=== PATIENT | female | born 1995 | race American Indian/Alaskan Native ===

== ENCOUNTER 2016-09-25 20:10 | Outpatient (CLI) | payer MEDICAID ==
[2016-09-25] MEDS ORDERED: LACTATED RINGERS 1,000 ML IV ONE (20:40)
[2016-09-25 20:49] VITALS: BP 119/76
[2016-09-25 21:21] LABS: Bilirubin,Urine NEG (Negative); Blood,Urine MOD (Negative); Ketones,Urine 20 mg/dL (Negative); Leukocyte Esterase,Urine NEG (Negative); Mucus,Urine FEW /HPF; Nitrite,Urine NEG (Negative); Urobilinogen,Urine < 2.0 mg/dL (<2.0)
--- NOTE | 2016-09-26 10:44 | Ultrasound Report ---
BIOPHYSICAL PROFILE: 2 - breathing movements 2 - movements 2 - posture and tone 2 - Qualitative amniotic fluid volume 8 - TOTAL SCORE OF POSSIBLE 8 Heart Rate (bpm) 153
== END 2016-09-25 22:45 | disposition home or self-care (01) ==
LOC: TRG 20:10
PROVIDERS: ATTEND Obstetrics & Gynecology
DX: O47.03 False labor before 37 completed weeks of gestation, third trimester (principal); Z3A.33 33 weeks gestation of pregnancy
CPT/HCPCS: 59025; 76819; 81001; 96360; 96361; J7120

== ENCOUNTER 2018-09-11 14:02 | Inpatient (IN) | payer MEDICAID ==
[2018-09-11 16:02] LABS: Hematocrit 28.3 % (30.3-42.9); Hemoglobin 9.3 gm/dl (10.1-14.3); Mean Corpuscular HGB Conc 33 % (30-34); Mean Corpuscular Volume 78 fl (79-97); Platelet Count 212 K/mm3 (140-440); Red Blood Count 3.63 M/mm3 (3.65-5.03); Red Cell Distribution Width 18.1 % (13.2-15.2)
[2018-09-11] MEDS ORDERED: CERVIDIL VG ONE (16:52)
[2018-09-11] MEDS ORDERED: MINERAL OIL PO PRN (19:48)
[2018-09-11] MEDS ORDERED: BRETHINE SUB-Q PRN (19:48)
[2018-09-11] MEDS ORDERED: XYLOCAINE 2% INFILTRATI ONE (19:48)
[2018-09-11] MEDS ORDERED: BRETHINE IVP PRN (19:48)
[2018-09-11] MEDS ORDERED: SUBLIMAZE IV PRN (19:48)
[2018-09-11] MEDS ORDERED: PITOCin/NS 20 UNIT/1000ML DRIP 20 UNITS/1,000 ML BAG IV SCH (20:00)
--- NOTE | 2018-09-11 20:03 | History and Physical Report ---
History of Present Illness Date of examination: 09/11/18 Date of admission: 09/11/18 14:02 Chief complaint: Sent from the office for IOL History of present illness: 22yo G 3 P 2 0 0 1 at 39 weeks 0 day here from the office for induction of labor secondary to h/o IUFD at term. She reports +FMs but denies VB or LOF. She is a [employer] patient who initiated care at 9 weeks gestation. Her care was co-managed w/APA secondary to h/o term IUFD at 40 weeks in 2014 & morbid obesity. She has a history of anemia (on iron therapy) and +HSV I (reports h/o cold sores in the winter but no genital herpes). Labs: A pos, Antibody Screen neg, Pap Smear normal, RI, VDRL NR, HBsAg neg, HIV NR, HSV 1 pos / HSV 2 neg, Diabetes Screen 87, GC/CT/Trich neg, GBS neg. 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 (ASCUS on 01/29/16) Family/Genetic History: cancer (colon - mother, sister) - Obstetrical History Expected Date of Delivery: 09/18/18 Actual Gestation: 39 Week(s) 0 Day(s) : 3 Para: 2 Hx # Term Pregnancies: 2 Number of Pregnancies: 0 Spontaneous Abortions: 0 Induced : 0 Number of Living Children: 1 #1 Infant Gender: Male year: 2,015 (03/23/2017) Birthweight: 2.92 kg (6 lbs 7 oz) Method of Delivery: Vaginal Gestational age at delivery: 40 Complications: other (IUFD) #2 Infant Gender: Female year: 2,[birth year] (10/28/2018) Birthweight: 2.835 kg (6 lbs 4 oz) Method of Delivery: Vaginal Gestational age at delivery: 38 Complications: none Medications and Allergies Allergies Allergy/AdvReac Type Severity Reaction Status Date / Time No Known Allergies Allergy Verified 09/25/16 20:43 Home Medications Medication Instructions Recorded Confirmed Last Taken Type One Daily Tablet 09/11/18 09/11/18 08:00 History Active Meds: Active Medications Lactated Ringer's (Lactated Ringers) 1,000 mls @ 125 mls/hr IV DIRECT REBECCA Review of Systems All systems: negative - Vital Signs Vital signs: Vital Signs Pulse BP 122 H 124/68 09/11/18 14:31 09/11/18 14:31 Temp Pulse Resp BP Pulse Ox 98.5 F 104 H 20 102/69 09/11/18 14:59 09/11/18 15:50 09/11/18 14:59 09/11/18 15:50 - Physical Exam Genitourinary (Female): Positive: normal external genitalia, normal perenium Vulva: both: normal - Obstetrical FHR: auscultation normal, category 1 FHR comments: baseline 135, moderate variability, + accels, no decels Uterine Contraction Monitor Mode: External Cervical Dilatation: 0.5 Cervical Effacement Percentage: 60 station: -3 Uterine Contraction Pattern: Irregular Results Result Diagrams: 09/11/18 15:50 Abnormal lab results 09/11/18 Range/Units 15:50 RBC 3.63 L (3.65-5.03) M/mm3 Hgb 9.3 L (10.1-14.3) gm/dl Hct 28.3 L (30.3-42.9) % MCV 78 L (79-97) fl MCH 26 L (28-32) pg RDW 18.1 H (13.2-15.2) % All other labs normal. Assessment and Plan - Patient Problems (1) 39 weeks gestation of Current Visit: Yes Status: Acute (2) H/O intrauterine , currently Current Visit: Yes Status: Chronic (3) Encounter for induction of labor Current Visit: Yes Status: Acute Plan to address problem: Admit to L&D with routine labor orders Discussed plan of care with patient. All questions answered Cervidil for cervical ripening Anticipate vaginal delivery
[2018-09-12] MEDS: STADOL IV PRN ×2 (04:40→06:40)
[2018-09-12] MEDS: LACTATED RINGERS 1,000 ML IV SCH ×3 (08:38→11:41)
--- NOTE | 2018-09-12 10:39 | Anesthesia Consultation ---
Anesthesia Consult and Med Hx - Airway Anesthetic Teeth Evaluation: Good ROM Head & Neck: Adequate Mental/Hyoid Distance: Adequate Mallampati Class: Class II Intubation Access Assessment: Probably Good - Pulmonary Exam CTA: Yes - Cardiac Exam Cardiac Exam: RRR - Pre-Operative Health Status ASA Pre-Surgery Classification: ASA2 Proposed Anesthetic Plan: Epidural - Pulmonary Hx Asthma: Yes (childhood no meds) COPD: No Hx Pneumonia: No - Cardiovascular System Hx Hypertension: No - Central Nervous System Hx Seizures: No Hx Psychiatric Problems: No - Endocrine Hx Renal Disease: No Hx End Stage Renal Disease: No Hx Hypothyroidism: No Hx Hyperthyroidism: No - Hematic Hx Anemia: Yes (with meds) Hx Sickle Cell Disease: No - Other Systems Hx Alcohol Use: No Hx Obesity: Yes
--- NOTE | 2018-09-12 10:39 | Anesthesia Day of Surgery ---
Anesthesia Day of Surgery - Day of Surgery Patient Examined: Yes Patient H&P Reviewed: Yes Patient is NPO: Yes Beta Blockers: No Cardiac Clearance: No Pulmonary Clearance: No Aquiles's Test: N/A
[2018-09-12] MEDS ORDERED: MARCAINE 0.25% INFILTRATI ONE ×2 (10:43→15:07)
[2018-09-12] MEDS ORDERED: fentaNYL-BUPIV 2 MCG/ML-0.125% 200 MCG/100 ML BAG EPIDURAL SCH (11:00)
[2018-09-12] MEDS ORDERED: NARCAN 2 MG/2 ML IV PRN (11:00)
--- NOTE | 2018-09-12 11:20 | Progress Note ---
Assessment and Plan - Patient Problems (1) Encounter for induction of labor Current Visit: Yes Status: Acute Plan to address problem: Continue routine labor orders AROM - clear, blood tinged fluids Initiate Pitocin after 1 hour if ctx remain irregular Anticipate (2) H/O intrauterine , currently Current Visit: Yes Status: Chronic (3) Morbid obesity Current Visit: Yes Status: Acute (4) Anemia affecting Current Visit: Yes Status: Acute Qualifiers: Trimester: third trimester Qualified Code(s): O99.013 - Anemia complicating , third trimester Subjective - Subjective Date of service: 09/12/18 Principal diagnosis: IOL secondary to hx of term IUFD Interval history: See admission H & P Patient reports: new complaints ("I feel better now that I have an epidural"), movement normal, contractions, no loss of fluid Objective - Vital Signs Vital Signs: Vital Signs - 12hr 09/11/18 09/11/18 09/11/18 23:17 23:22 23:27 Temperature Pulse Rate 105 H 107 H 111 H Respiratory Rate Blood Pressure Blood Pressure [Left] O2 Sat by Pulse 98 98 97 Oximetry 09/11/18 09/11/18 09/11/18 23:32 23:37 23:38 Temperature Pulse Rate 109 H 101 H Respiratory Rate Blood Pressure Blood Pressure [Left] O2 Sat by Pulse 96 97 87 Oximetry 09/11/18 09/11/18 09/11/18 23:42 23:47 23:52 Temperature Pulse Rate 96 H 100 H 95 H Respiratory Rate Blood Pressure Blood Pressure [Left] O2 Sat by Pulse 96 97 96 Oximetry 09/11/18 09/11/18 09/12/18 23:57 23:59 00:00 Temperature 98.4 F Pulse Rate 104 H 98 H 100 H Respiratory 18 Rate Blood Pressure Blood Pressure 118/78 [Left] O2 Sat by Pulse 96 94 100 Oximetry 09/12/18 09/12/18 09/12/18 00:02 00:05 00:07 Temperature Pulse Rate 101 H 117 H 96 H Respiratory Rate Blood Pressure Blood Pressure [Left] O2 Sat by Pulse 96 92 96 Oximetry 09/12/18 09/12/18 09/12/18 00:12 00:17 00:22 Temperature Pulse Rate 99 H 95 H 93 H Respiratory Rate Blood Pressure Blood Pressure [Left] O2 Sat by Pulse 97 96 97 Oximetry 09/12/18 09/12/18 09/12/18 00:27 00:32 00:37 Temperature Pulse Rate 98 H 102 H 107 H Respiratory Rate Blood Pressure Blood Pressure [Left] O2 Sat by Pulse 96 98 98 Oximetry 09/12/18 09/12/18 09/12/18 00:42 00:45 00:47 Temperature Pulse Rate 98 H 111 H 100 H Respiratory Rate Blood Pressure Blood Pressure [Left] O2 Sat by Pulse 97 84 97 Oximetry 09/12/18 09/12/18 09/12/18 01:10 01:15 01:18 Temperature Pulse Rate 106 H 100 H 86 Respiratory Rate Blood Pressure Blood Pressure [Left] O2 Sat by Pulse 98 98 94 Oximetry 09/12/18 09/12/18 09/12/18 01:20 01:25 01:30 Temperature Pulse Rate 99 H 92 H 91 H Respiratory Rate Blood Pressure Blood Pressure [Left] O2 Sat by Pulse 96 98 98 Oximetry 09/12/18 09/12/18 09/12/18 01:35 01:40 01:45 Temperature Pulse Rate 85 95 H 101 H Respiratory Rate Blood Pressure Blood Pressure [Left] O2 Sat by Pulse 98 98 97 Oximetry 09/12/18 09/12/18 09/12/18 04:32 04:40 04:41 Temperature 97.6 F Pulse Rate 98 H Respiratory 18 18 Rate Blood Pressure 137/87 Blood Pressure [Left] O2 Sat by Pulse Oximetry 09/12/18 09/12/18 09/12/18 05:34 06:36 06:41 Temperature Pulse Rate 89 91 H Respiratory 18 Rate Blood Pressure Blood Pressure [Left] O2 Sat by Pulse 96 95 Oximetry 09/12/18 09/12/18 09/12/18 06:44 06:46 06:51 Temperature Pulse Rate 87 84 88 Respiratory Rate Blood Pressure Blood Pressure [Left] O2 Sat by Pulse 94 93 92 Oximetry 09/12/18 09/12/18 09/12/18 06:56 07:00 07:01 Temperature 98.0 F Pulse Rate 89 91 H Respiratory 16 Rate Blood Pressure Blood Pressure [Left] O2 Sat by Pulse 94 94 Oximetry 09/12/18 09/12/18 09/12/18 07:03 07:06 07:11 Temperature Pulse Rate 90 114 H 97 H Respiratory Rate Blood Pressure Blood Pressure [Left] O2 Sat by Pulse 94 94 95 Oximetry 05/14/19 05/14/19 05/14/19 07:16 07:19 07:21 Temperature Pulse Rate 88 90 111 H Respiratory Rate Blood Pressure Blood Pressure [Left] O2 Sat by Pulse 95 94 93 Oximetry 09/12/18 09/12/18 09/12/18 07:26 07:31 07:36 Temperature Pulse Rate 90 107 H 80 Respiratory Rate Blood Pressure Blood Pressure [Left] O2 Sat by Pulse 95 95 96 Oximetry 09/12/18 09/12/18 09/12/18 07:40 07:41 07:45 Temperature Pulse Rate 104 H 82 95 H Respiratory Rate Blood Pressure Blood Pressure [Left] O2 Sat by Pulse 94 95 93 Oximetry 09/12/18 09/12/18 09/12/18 07:46 07:51 07:56 Temperature Pulse Rate 93 H 119 H 90 Respiratory Rate Blood Pressure Blood Pressure [Left] O2 Sat by Pulse 96 95 96 Oximetry 09/12/18 09/12/18 09/12/18 08:01 08:06 08:11 Temperature Pulse Rate 121 H 96 H 101 H Respiratory Rate Blood Pressure Blood Pressure [Left] O2 Sat by Pulse 97 96 97 Oximetry 09/12/18 09/12/18 09/12/18 08:16 08:21 08:26 Temperature Pulse Rate 103 H 104 H 98 H Respiratory Rate Blood Pressure Blood Pressure [Left] O2 Sat by Pulse 97 95 96 Oximetry 09/12/18 09/12/18 09/12/18 08:28 08:31 08:36 Temperature Pulse Rate 103 H 105 H 91 H Respiratory Rate Blood Pressure Blood Pressure [Left] O2 Sat by Pulse 94 96 96 Oximetry 09/12/18 09/12/18 09/12/18 08:41 08:46 08:47 Temperature Pulse Rate 115 H 83 86 Respiratory Rate Blood Pressure Blood Pressure [Left] O2 Sat by Pulse 95 94 94 Oximetry 09/12/18 09/12/18 09/12/18 08:51 08:53 08:56 Temperature Pulse Rate 103 H 84 88 Respiratory Rate Blood Pressure Blood Pressure [Left] O2 Sat by Pulse 95 94 95 Oximetry 09/12/18 09/12/18 09/12/18 09:01 09:06 09:11 Temperature Pulse Rate 86 91 H 114 H Respiratory Rate Blood Pressure Blood Pressure [Left] O2 Sat by Pulse 95 95 95 Oximetry 09/12/18 09/12/18 09/12/18 09:16 09:21 09:26 Temperature Pulse Rate 102 H 94 H 92 H Respiratory Rate Blood Pressure Blood Pressure [Left] O2 Sat by Pulse 96 96 95 Oximetry 09/12/18 09/12/18 09/12/18 09:31 09:33 09:36 Temperature Pulse Rate 99 H 96 H 96 H Respiratory Rate Blood Pressure Blood Pressure [Left] O2 Sat by Pulse 95 94 95 Oximetry 09/12/18 09/12/18 09/12/18 09:40 09:41 09:46 Temperature Pulse Rate 86 86 101 H Respiratory Rate Blood Pressure Blood Pressure [Left] O2 Sat by Pulse 94 97 95 Oximetry 09/12/18 09/12/18 09/12/18 09:51 09:55 09:56 Temperature Pulse Rate 84 95 H 86 Respiratory Rate Blood Pressure Blood Pressure [Left] O2 Sat by Pulse 95 94 95 Oximetry 09/12/18 09/12/18 09/12/18 10:01 10:04 10:06 Temperature Pulse Rate 82 91 H 93 H Respiratory Rate Blood Pressure Blood Pressure [Left] O2 Sat by Pulse 96 94 97 Oximetry 09/12/18 09/12/18 09/12/18 10:11 10:16 10:21 Temperature Pulse Rate 105 H 103 H 107 H Respiratory Rate Blood Pressure Blood Pressure [Left] O2 Sat by Pulse 96 96 96 Oximetry 09/12/18 09/12/18 09/12/18 10:40 10:45 10:50 Temperature Pulse Rate 96 H 101 H 105 H Respiratory Rate Blood Pressure Blood Pressure [Left] O2 Sat by Pulse 98 98 97 Oximetry 09/12/18 09/12/18 09/12/18 10:54 10:55 10:58 Temperature Pulse Rate 111 H 114 H 101 H Respiratory Rate Blood Pressure 122/73 Blood Pressure [Left] O2 Sat by Pulse 94 97 Oximetry 09/12/18 09/12/18 09/12/18 11:00 11:04 11:05 Temperature Pulse Rate 119 H 114 H 113 H Respiratory Rate Blood Pressure 117/61 Blood Pressure [Left] O2 Sat by Pulse 99 96 Oximetry 09/12/18 09/12/18 09/12/18 11:06 11:09 11:10 Temperature Pulse Rate 115 H 120 H 114 H Respiratory Rate Blood Pressure 107/61 119/64 Blood Pressure [Left] O2 Sat by Pulse 100 Oximetry 09/12/18 11:12 Temperature Pulse Rate 103 H Respiratory Rate Blood Pressure 124/63 Blood Pressure [Left] O2 Sat by Pulse Oximetry - Exam Breasts: deferred Cardiovascular: Regular rate Lungs: Normal air movement Abdomen: Present: other (gravid) Uterus: Present: other (S=D) FHR: category 1 Uterine Contraction Monitor Mode: External Cervical Dilatation: 4.5 Cervical Effacement Percentage: 80 station: -1 Uterine Contraction Frequency (min): 5-7 Uterine Contraction Pattern: Irregular Uterine Tone Measurement Phase: Resting Uterine Contraction Intensity: Moderate Extremities: normal Deep Tendon Reflex Grade: Normal +2 - Labs Labs: Abnormal Labs 09/11/18 15:50 RBC 3.63 L Hgb 9.3 L Hct 28.3 L MCV 78 L MCH 26 L RDW 18.1 H Laboratory Results - last 24 hr 09/11/18 09/11/18 09/11/18 15:50 15:50 15:50 WBC 8.5 RBC 3.63 L Hgb 9.3 L Hct 28.3 L MCV 78 L MCH 26 L MCHC 33 RDW 18.1 H Plt Count 212 RPR Nonreactive Blood Type A POSITIVE Antibody Screen Negative
[2018-09-12] MEDS ORDERED: ZOFRAN IV PRN ×2 (12:00→18:07)
[2018-09-12] MEDS ORDERED: PITOCin/NS 30 UNIT/500ML 30 UNITS/500 ML BAG IV SCH (12:30)
--- NOTE | 2018-09-12 15:55 | Progress Note ---
Assessment and Plan - Patient Problems (1) Encounter for induction of labor Current Visit: Yes Status: Acute Plan to address problem: Continue routine labor orders Continue Pitocin titration as tolerated Anticipate (2) H/O intrauterine , currently Current Visit: Yes Status: Chronic (3) Morbid obesity Current Visit: Yes Status: Acute (4) Anemia affecting Current Visit: Yes Status: Acute Qualifiers: Trimester: third trimester Qualified Code(s): O99.013 - Anemia complicating , third trimester Subjective - Subjective Date of service: 09/12/18 (1500) Principal diagnosis: IOL secondary to hx of term IUFD Interval history: See admission H & P Patient reports: movement normal, contractions, other (Resting comfortably with epidural. Significant other at bedside) Objective - Vital Signs Vital Signs: Vital Signs - 12hr 09/12/18 09/12/18 09/12/18 04:32 04:40 04:41 Temperature 97.6 F Pulse Rate 98 H Respiratory 18 18 Rate Blood Pressure 137/87 O2 Sat by Pulse Oximetry 09/12/18 09/12/18 09/12/18 05:34 06:36 06:41 Temperature Pulse Rate 89 91 H Respiratory 18 Rate Blood Pressure O2 Sat by Pulse 96 95 Oximetry 09/12/18 09/12/18 09/12/18 06:44 06:46 06:51 Temperature Pulse Rate 87 84 88 Respiratory Rate Blood Pressure O2 Sat by Pulse 94 93 92 Oximetry 09/12/18 09/12/18 09/12/18 06:56 07:00 07:01 Temperature 98.0 F Pulse Rate 89 91 H Respiratory 16 Rate Blood Pressure O2 Sat by Pulse 94 94 Oximetry 09/12/18 09/12/18 09/12/18 07:03 07:06 07:11 Temperature Pulse Rate 90 114 H 97 H Respiratory Rate Blood Pressure O2 Sat by Pulse 94 94 95 Oximetry 09/12/18 09/12/18 09/12/18 07:16 07:19 07:21 Temperature Pulse Rate 88 90 111 H Respiratory Rate Blood Pressure O2 Sat by Pulse 95 94 93 Oximetry 09/12/18 09/12/18 09/12/18 07:26 07:31 07:36 Temperature Pulse Rate 90 107 H 80 Respiratory Rate Blood Pressure O2 Sat by Pulse 95 95 96 Oximetry 09/12/18 09/12/18 09/12/18 07:40 07:41 07:45 Temperature Pulse Rate 104 H 82 95 H Respiratory Rate Blood Pressure O2 Sat by Pulse 94 95 93 Oximetry 09/12/18 09/12/18 09/12/18 07:46 07:51 07:56 Temperature Pulse Rate 93 H 119 H 90 Respiratory Rate Blood Pressure O2 Sat by Pulse 96 95 96 Oximetry 09/12/18 09/12/18 09/12/18 08:01 08:06 08:11 Temperature Pulse Rate 121 H 96 H 101 H Respiratory Rate Blood Pressure O2 Sat by Pulse 97 96 97 Oximetry 09/12/18 09/12/18 09/12/18 08:16 08:21 08:26 Temperature Pulse Rate 103 H 104 H 98 H Respiratory Rate Blood Pressure O2 Sat by Pulse 97 95 96 Oximetry 09/12/18 09/12/18 09/12/18 08:28 08:31 08:36 Temperature Pulse Rate 103 H 105 H 91 H Respiratory Rate Blood Pressure O2 Sat by Pulse 94 96 96 Oximetry 09/12/18 09/12/18 09/12/18 08:41 08:46 08:47 Temperature Pulse Rate 115 H 83 86 Respiratory Rate Blood Pressure O2 Sat by Pulse 95 94 94 Oximetry 09/12/18 09/12/18 09/12/18 08:51 08:53 08:56 Temperature Pulse Rate 103 H 84 88 Respiratory Rate Blood Pressure O2 Sat by Pulse 95 94 95 Oximetry 09/12/18 09/12/18 09/12/18 09:01 09:06 09:11 Temperature Pulse Rate 86 91 H 114 H Respiratory Rate Blood Pressure O2 Sat by Pulse 95 95 95 Oximetry 09/12/18 09/12/18 09/12/18 09:16 09:21 09:26 Temperature Pulse Rate 102 H 94 H 92 H Respiratory Rate Blood Pressure O2 Sat by Pulse 96 96 95 Oximetry 09/12/18 09/12/18 09/12/18 09:31 09:33 09:36 Temperature Pulse Rate 99 H 96 H 96 H Respiratory Rate Blood Pressure O2 Sat by Pulse 95 94 95 Oximetry 09/12/18 09/12/18 09/12/18 09:40 09:41 09:46 Temperature Pulse Rate 86 86 101 H Respiratory Rate Blood Pressure O2 Sat by Pulse 94 97 95 Oximetry 09/12/18 09/12/18 09/12/18 09:51 09:55 09:56 Temperature Pulse Rate 84 95 H 86 Respiratory Rate Blood Pressure O2 Sat by Pulse 95 94 95 Oximetry 09/12/18 09/12/18 09/12/18 10:01 10:04 10:06 Temperature Pulse Rate 82 91 H 93 H Respiratory Rate Blood Pressure O2 Sat by Pulse 96 94 97 Oximetry 09/12/18 09/12/18 09/12/18 10:11 10:16 10:21 Temperature Pulse Rate 105 H 103 H 107 H Respiratory Rate Blood Pressure O2 Sat by Pulse 96 96 96 Oximetry 09/12/18 09/12/18 09/12/18 10:40 10:45 10:50 Temperature Pulse Rate 96 H 101 H 105 H Respiratory Rate Blood Pressure O2 Sat by Pulse 98 98 97 Oximetry 09/12/18 09/12/18 09/12/18 10:54 10:55 10:58 Temperature Pulse Rate 111 H 114 H 101 H Respiratory Rate Blood Pressure 122/73 O2 Sat by Pulse 94 97 Oximetry 09/12/18 09/12/18 09/12/18 11:00 11:04 11:05 Temperature Pulse Rate 119 H 114 H 113 H Respiratory Rate Blood Pressure 117/61 O2 Sat by Pulse 99 96 Oximetry 09/12/18 09/12/18 09/12/18 11:06 11:09 11:10 Temperature Pulse Rate 115 H 120 H 114 H Respiratory Rate Blood Pressure 107/61 119/64 O2 Sat by Pulse 100 Oximetry 09/12/18 09/12/18 09/12/18 11:12 11:15 11:18 Temperature Pulse Rate 103 H 93 H 116 H Respiratory Rate Blood Pressure 124/63 116/59 109/59 O2 Sat by Pulse 97 Oximetry 09/12/18 09/12/18 09/12/18 11:20 11:21 11:24 Temperature Pulse Rate 109 H 108 H 86 Respiratory Rate Blood Pressure 103/57 110/61 O2 Sat by Pulse 98 Oximetry 09/12/18 09/12/18 09/12/18 11:25 11:27 11:30 Temperature Pulse Rate 99 H 112 H 94 H Respiratory Rate Blood Pressure 108/65 115/67 O2 Sat by Pulse 97 97 Oximetry 09/12/18 09/12/18 09/12/18 11:33 11:35 11:36 Temperature Pulse Rate 118 H 132 H 100 H Respiratory Rate Blood Pressure 114/67 119/81 O2 Sat by Pulse 99 Oximetry 09/12/18 09/12/18 09/12/18 11:39 11:40 11:42 Temperature Pulse Rate 100 H 106 H 105 H Respiratory Rate Blood Pressure 119/70 111/63 O2 Sat by Pulse 98 Oximetry 09/12/18 09/12/18 09/12/18 11:45 11:48 11:50 Temperature Pulse Rate 90 101 H 92 H Respiratory Rate Blood Pressure 120/72 112/72 O2 Sat by Pulse 98 98 Oximetry 09/12/18 09/12/18 09/12/18 11:51 11:54 11:55 Temperature Pulse Rate 100 H 107 H 91 H Respiratory Rate Blood Pressure 105/67 102/58 O2 Sat by Pulse 98 Oximetry 09/12/18 09/12/18 09/12/18 11:57 12:00 12:03 Temperature Pulse Rate 81 86 105 H Respiratory Rate Blood Pressure 109/65 111/62 104/57 O2 Sat by Pulse 98 Oximetry 09/12/18 09/12/18 09/12/18 12:05 12:06 12:09 Temperature 97.9 F Pulse Rate 83 76 100 H Respiratory Rate Blood Pressure 115/64 108/61 O2 Sat by Pulse 97 Oximetry 09/12/18 09/12/18 09/12/18 12:10 12:15 12:20 Temperature Pulse Rate 107 H 79 120 H Respiratory Rate Blood Pressure O2 Sat by Pulse 99 97 97 Oximetry 09/12/18 09/12/18 09/12/18 12:25 12:26 12:30 Temperature Pulse Rate 90 92 H 84 Respiratory Rate Blood Pressure 105/66 O2 Sat by Pulse 96 97 Oximetry 09/12/18 09/12/18 09/12/18 12:35 12:40 12:42 Temperature Pulse Rate 110 H 79 86 Respiratory Rate Blood Pressure 105/68 O2 Sat by Pulse 97 96 Oximetry 09/12/18 09/12/18 09/12/18 12:45 12:50 12:55 Temperature Pulse Rate 90 79 90 Respiratory Rate Blood Pressure O2 Sat by Pulse 97 97 98 Oximetry 09/12/18 09/12/18 09/12/18 12:57 13:00 13:05 Temperature Pulse Rate 100 H 112 H 89 Respiratory Rate Blood Pressure 121/79 O2 Sat by Pulse 97 96 Oximetry 05/09/12/18 09/12/18 13:10 13:11 13:15 Temperature Pulse Rate 80 95 H 104 H Respiratory Rate Blood Pressure 109/61 O2 Sat by Pulse 97 96 Oximetry 09/12/18 09/12/18 09/12/18 13:20 13:25 13:26 Temperature Pulse Rate 84 93 H 129 H Respiratory Rate Blood Pressure 111/71 O2 Sat by Pulse 98 97 Oximetry 09/12/18 09/12/18 09/12/18 13:30 13:35 13:40 Temperature Pulse Rate 99 H 99 H 90 Respiratory Rate Blood Pressure O2 Sat by Pulse 98 98 98 Oximetry 09/12/18 09/12/18 09/12/18 13:45 13:50 13:55 Temperature Pulse Rate 85 88 88 Respiratory Rate Blood Pressure O2 Sat by Pulse 97 96 97 Oximetry 09/12/18 09/12/18 09/12/18 14:00 14:05 14:10 Temperature Pulse Rate 88 80 89 Respiratory Rate Blood Pressure 109/72 O2 Sat by Pulse 97 98 98 Oximetry 09/12/18 09/12/18 09/12/18 14:15 14:20 14:25 Temperature Pulse Rate 96 H 90 91 H Respiratory Rate Blood Pressure O2 Sat by Pulse 99 97 99 Oximetry 09/12/18 09/12/18 09/12/18 14:30 14:35 14:40 Temperature Pulse Rate 83 88 113 H Respiratory Rate Blood Pressure 117/72 O2 Sat by Pulse 98 97 99 Oximetry 09/12/18 09/12/18 09/12/18 14:45 14:50 14:55 Temperature Pulse Rate 99 H 93 H 101 H Respiratory Rate Blood Pressure O2 Sat by Pulse 97 96 97 Oximetry 09/12/18 09/12/18 09/12/18 15:00 15:05 15:11 Temperature Pulse Rate 95 H 98 H 106 H Respiratory Rate Blood Pressure O2 Sat by Pulse 98 98 97 Oximetry 09/12/18 09/12/18 09/12/18 15:12 15:16 15:21 Temperature Pulse Rate 101 H 107 H 90 Respiratory Rate Blood Pressure 130/78 O2 Sat by Pulse 97 96 Oximetry 09/12/18 09/12/18 09/12/18 15:26 15:31 15:36 Temperature Pulse Rate 91 H 102 H 95 H Respiratory Rate Blood Pressure O2 Sat by Pulse 95 96 96 Oximetry 09/12/18 09/12/18 15:41 15:46 Temperature Pulse Rate 99 H 100 H Respiratory Rate Blood Pressure 103/63 O2 Sat by Pulse 96 98 Oximetry - Exam Breasts: deferred Cardiovascular: Regular rate Lungs: Normal air movement Abdomen: Present: other (gravid) FHR: category 1 Uterine Contraction Monitor Mode: External Cervical Dilatation: 6 (per RN) Cervical Effacement Percentage: 80 station: -1 Uterine Contraction Frequency (min): 3-4 Uterine Contraction Pattern: Regular Uterine Tone Measurement Phase: Resting Uterine Contraction Intensity: Moderate Extremities: normal Deep Tendon Reflex Grade: Normal +2 - Labs Labs: Abnormal Labs 09/11/18 15:50 RBC 3.63 L Hgb 9.3 L Hct 28.3 L MCV 78 L MCH 26 L RDW 18.1 H Laboratory Results - last 24 hr 09/11/18 09/11/18 09/11/18 15:50 15:50 15:50 WBC 8.5 RBC 3.63 L Hgb 9.3 L Hct 28.3 L MCV 78 L MCH 26 L MCHC 33 RDW 18.1 H Plt Count 212 RPR Nonreactive Blood Type A POSITIVE Antibody Screen Negative
--- NOTE | 2018-09-12 18:06 | Procedure Note ---
OB Delivery Note - Delivery Estimated blood loss: 100cc - Vaginal Delivery presentation: vertex Delivery position: OA Delivery induction: cervidil Delivery monitor: external FHT Route of delivery: Delivery placenta: spontaneous Episiotomy: none Delivery laceration: none Anesthesia: epidural Delivery comments: Called to room for delivery of a term male infant, delivered vertex, no lacerations. Infant delivered with spontaneous cry, bulb suctioned and placed on maternal abdomen. - A at 1 minute: 8 at 5 minutes: 9 Infant Gender: Male (Weight 6lb 4oz)
[2018-09-12] MEDS ORDERED: DULCOLAX PR PRN (18:07)
[2018-09-12] MEDS ORDERED: LANSINOH TP PRN (18:07)
[2018-09-12] MEDS ORDERED: PHENERGAN PO PRN (18:07)
[2018-09-12] MEDS ORDERED: TUCKS PAD TP PRN (18:07)
[2018-09-12] MEDS ORDERED: BENADRYL PO PRN (18:07)
[2018-09-12] MEDS ORDERED: MILK OF MAGNESIA PO PRN (18:07)
[2018-09-12] MEDS ORDERED: SODIUM CHLORIDE FLUSH SYRINGE 10 ML IV SCH (19:00)
[2018-09-12] MEDS: IBUPROFEN PO SCH (20:22)
[2018-09-12] MEDS: TYLENOL PO PRN (20:22)
[2018-09-13] MEDS: IBUPROFEN PO SCH ×4 (00:30→17:54)
[2018-09-13] MEDS: TYLENOL PO PRN ×2 (04:16→13:25)
[2018-09-13 06:14] LABS: Hematocrit 26.4 % (30.3-42.9); Hemoglobin 8.4 gm/dl (10.1-14.3)
[2018-09-13] MEDS: PRENATAL VITAMIN PO SCH (09:52)
[2018-09-13] MEDS: FEOSOL PO SCH (09:52)
--- NOTE | 2018-09-13 10:02 | Progress Note ---
Assessment and Plan - Patient Problems (1) Encounter for induction of labor Current Visit: Yes Status: Acute Plan to address problem: Continue routine PP orders Anticipate d/c home in 24-48 hrs (2) H/O intrauterine , currently Current Visit: Yes Status: Chronic (3) Morbid obesity Current Visit: Yes Status: Acute (4) Anemia affecting Current Visit: Yes Status: Acute Qualifiers: Trimester: third trimester Qualified Code(s): O99.013 - Anemia complicating , third trimester Plan to address problem: Currently asymptomatic Continue daily iron supplementation twice daily Subjective - Subjective Date of service: 09/13/18 Principal diagnosis: IOL secondary to hx of term IUFD Interval history: See admission H & P; OB progress notes; and OB delivery summary Patient reports: appetite normal, voiding normally, pain well controlled, flatus, ambulating normally, no bowel movement [place]: doing well () Objective - Vital Signs Latest vital signs: Vital Signs Temp Pulse Resp BP BP Pulse Ox 09/13/18 08:15 98 F 97 H 20 106/62 09/13/18 04:00 98.6 F 78 18 117/81 09/13/18 00:11 98.7 F 18 102/54 09/12/18 20:00 99.3 F 109 H 16 123/79 09/12/18 18:36 109 H 125/60 09/12/18 18:21 107 H 112/58 09/12/18 18:06 105 H 132/62 09/12/18 17:40 127 H 147/79 09/12/18 16:40 106 H 128/81 09/12/18 16:12 120 H 112/62 09/12/18 16:00 98.0 F 18 09/12/18 15:56 106 H 98 09/12/18 15:51 100 H 98 09/12/18 15:46 100 H 98 09/12/18 15:41 99 H 103/63 96 09/12/18 15:36 95 H 96 09/12/18 15:31 102 H 96 09/12/18 15:26 91 H 95 09/12/18 15:21 90 96 09/12/18 15:16 107 H 97 09/12/18 15:12 101 H 130/78 09/12/18 15:11 106 H 97 09/12/18 15:05 98 H 98 09/12/18 15:00 95 H 98 09/12/18 14:55 101 H 97 09/12/18 14:50 93 H 96 09/12/18 14:45 99 H 97 09/12/18 14:40 113 H 117/72 99 09/12/18 14:35 88 97 09/12/18 14:30 83 98 05 14:25 91 H 99 09/12/18 14:20 90 97 09/12/18 14:15 96 H 99 09/12/18 14:10 89 109/72 98 09/12/18 14:05 80 98 09/12/18 14:00 98.0 F 88 16 97 09/12/18 13:55 88 97 09/12/18 13:50 88 96 09/12/18 13:45 85 97 09/12/18 13:40 90 98 09/12/18 13:35 99 H 98 09/12/18 13:30 99 H 98 09/12/18 13:26 129 H 111/71 09/12/18 13:25 93 H 97 09/12/18 13:20 84 98 09/12/18 13:15 104 H 96 09/12/18 13:11 95 H 109/61 09/12/18 13:10 80 97 09/12/18 13:05 89 96 09/12/18 13:00 112 H 97 09/12/18 12:57 100 H 121/79 09/12/18 12:55 90 98 09/12/18 12:50 79 97 09/12/18 12:45 90 97 09/12/18 12:42 86 105/68 09/12/18 12:40 79 96 09/12/18 12:35 110 H 97 09/12/18 12:30 84 97 09/12/18 12:26 92 H 105/66 09/12/18 12:25 90 96 09/12/18 12:20 120 H 97 09/12/18 12:15 79 97 09/12/18 12:10 107 H 99 09/12/18 12:09 100 H 108/61 09/12/18 12:06 97.9 F 76 115/64 14 12:05 83 97 09/12/18 12:03 105 H 104/57 09/12/18 12:00 86 111/62 98 09/12/18 11:57 81 109/65 09/12/18 11:55 91 H 98 09/12/18 11:54 107 H 102/58 09/12/18 11:51 100 H 105/67 09/12/18 11:50 92 H 98 09/12/18 11:48 101 H 112/72 09/12/18 11:45 90 120/72 98 09/12/18 11:42 105 H 111/63 09/12/18 11:40 106 H 98 09/12/18 11:39 100 H 119/70 09/12/18 11:36 100 H 119/81 09/12/18 11:35 132 H 99 09/12/18 11:33 118 H 114/67 09/12/18 11:30 94 H 115/67 97 09/12/18 11:27 112 H 108/65 09/12/18 11:25 99 H 97 09/12/18 11:24 86 110/61 09/12/18 11:21 108 H 103/57 09/12/18 11:20 109 H 98 09/12/18 11:18 116 H 109/59 09/12/18 11:15 93 H 116/59 97 09/12/18 11:12 103 H 124/63 09/12/18 11:10 114 H 100 09/12/18 11:09 120 H 119/64 09/12/18 11:06 115 H 107/61 09/12/18 11:05 113 H 96 09/12/18 11:04 114 H 117/61 09/12/18 11:00 119 H 99 09/12/18 10:58 101 H 122/73 09/12/18 10:55 114 H 97 09/12/18 10:54 111 H 94 09/12/18 10:50 105 H 97 09/12/18 10:45 101 H 98 09/12/18 10:40 96 H 98 09/12/18 10:21 107 H 96 09/12/18 10:16 103 H 96 09/12/18 10:11 105 H 96 09/12/18 10:06 93 H 97 09/12/18 10:04 91 H 94 09/12/18 10:01 82 96 Intake and Output 09/12/18 09/13/18 09/13/18 23:59 07:59 15:59 Intake Total 10.467 320 Output Total 1200 1400 400 Balance -1189.533 -1400 -80 Intake: IV 10.467 PITOCin/NS 30 UNIT/500ML 10.467 30 units In 500 ml @ 2 mls/hr IV TITR REBECCA Rx#: [id number] Oral 320 Output: Urine 1200 1400 400 Indwelling Catheter 1200 Void 1400 400 Other: Total, Intake Amount 320 Total, Output Amount 400 600 400 # Voids Void 1 Estimated Blood Loss 100 - Exam Breasts: Present: normal Cardiovascular: Present: Regular rate Lungs: Present: Normal air movement Abdomen: Present: soft, normal bowel sounds Uterus: Present: firm, fundal height at umbilicus Extremities: Present: normal Deep Tendon Reflex Grade: Normal +2 - Labs Labs: Abnormal lab results 09/13/18 Range/Units 06:00 Hgb 8.4 L (10.1-14.3) gm/dl Hct 26.4 L (30.3-42.9) %
--- NOTE | 2018-09-13 10:09 | Discharge Summary ---
Providers - Providers Date of Admission: 09/11/18 14:02 Date of discharge: 09/14/18 (1200) Attending physician: TESS SHELBY MD Primary care physician: TESS SHELBY MD Hospitalization Reason for admission: induction of labor (secondary to hx of term IUFD), IUP at term Delivery: Episiotomy: none Laceration: none Other procedures: none complications: none Discharge diagnosis: IUP at term delivered, other (Anemia) baby: male Hospital course: See admission H & P; OB delivery summary and PP progress notes Condition at discharge: Good Disposition: DC-01 TO HOME OR SELFCARE - Discharge Diagnoses (1) Encounter for induction of labor Status: Acute (2) H/O intrauterine , currently Status: Chronic (3) Morbid obesity Status: Acute (4) Anemia affecting Status: Acute Qualifiers: Trimester: third trimester Qualified Code(s): O99.013 - Anemia complicating , third trimester Plan - Provider Discharge Summary Activity: routine, no sex for 6 weeks, no heavy lifting 4 weeks, no strenuous exercise Diet: routine Instructions: routine Additional instructions: [] Smoking cessation referral if applicable(refer to patient education folder for contact #) [] Refer to [facility] Booklet Call your doctor immediately for: * Fever > 100.5 * Heavy vaginal bleeding ( >1 pad per hour) * Severe persistent headache * Shortness of breath * Reddened, hot, painful area to leg or breast * Drainage or odor from incision. * Continue daily iron supplementation twice daily - Follow up plan Follow up: TESS SHELBY MD [Primary Care Provider] - 6 Weeks
[2018-09-14] MEDS: IBUPROFEN PO SCH ×2 (01:35→05:36)
[2018-09-14] MEDS: FEOSOL PO SCH ×2 (01:36→09:22)
[2018-09-14] MEDS ORDERED: BOOSTRIX IM ONE (09:00)
[2018-09-14] MEDS: PRENATAL VITAMIN PO SCH (09:22)
[2018-09-14 13:52] VITALS: BP 128/80
== END 2018-09-14 13:45 | disposition home or self-care (01) | DRG 775 ==
LOC: LD 14:02 → OB 09-12 20:07
PROVIDERS: ADMIT Obstetrics & Gynecology; ATTEND Obstetrics & Gynecology
PROC: 10E0XZZ Delivery of Products of Conception, External Approach (ICD-10-PCS; principal; 2018-09-12)
PROC: 10907ZC Drainage of Amniotic Fluid, Therapeutic from Products of Conception, Via Natural or Artificial Opening (ICD-10-PCS; 2018-09-12)
PROC: 3E0P7VZ Introduction of Hormone into Female Reproductive, Via Natural or Artificial Opening (ICD-10-PCS; 2018-09-12)
PROC: 3E0R3BZ Introduction of Anesthetic Agent into Spinal Canal, Percutaneous Approach (ICD-10-PCS; 2018-09-12)
PROC: 00HU33Z Insertion of Infusion Device into Spinal Canal, Percutaneous Approach (ICD-10-PCS; 2018-09-12)
DX: O99.52 Diseases of the respiratory system complicating childbirth (principal); J45.909 Unspecified asthma, uncomplicated; O99.214 Obesity complicating childbirth; E66.01 Morbid (severe) obesity due to excess calories; O99.02 Anemia complicating childbirth; D64.9 Anemia, unspecified; Z3A.39 39 weeks gestation of pregnancy; Z37.0 Single live birth; Z80.9 Family history of malignant neoplasm, unspecified
CPT/HCPCS: 36415; 59200; 85014; 85018; 85027; 86592; 86850; 86900; 86901; 90715; G0378; J0595; J2590; J3010; J7120